=== PATIENT | male | born 1950 | race Caucasian/White ===

== ENCOUNTER 2024-07-12 08:38 | Outpatient (CLI) | payer MEDICARE, OTHER, SELFPAY ==
--- NOTE | 2024-08-03 00:05 | WPDSLEEPSTUD ---
Sleep Study Date of Study: 07/12/24 Ordering Provider: Manjit Rivas MD Interpreting Physician: Edna Prieto MD Sleep Study Type: Split Polysomnogram Height: 1.8 m Weight: 102.058 kg Body Mass Index: 31.4 Neck Circumference (inches): 17 [place]: 7 Reason for Sleep Study Known obstructive sleep apnea not currently on treatment; loud snoring, waking during the night Previous split night study showed AHI 14, recommended pressure 9 cm; problems tolerating mask, pressure He presents for split night study as he has been on PAP for 2 years Sleep History Hernando Hinds is a 74-year-old man with obstructive sleep apnea diagnosed over 2 years ago, had an AHI of 14 and recommended CPAP 9 cm from another sleep lab. He had difficulty tolerating the mask and pressure, despite several attempts by his ENT to adjust CPAP including lower to 5/6 range, then 7/8 in order to allow him to acclimate to wearing 9 cm. He was not able to tolerate PAP, had his machine removed over 2 years ago due to non-adherence. He has nighttime awakenings and excessive daytime sleepiness. He rarely awakens from sleep feeling short of breath. He frequently awakens at night with coughing. He frequently snores, and he occasionally snores loudly enough that others complain. He frequently has difficulty sleeping when he has a cold. He occasionally wakes up gasping for breath at night. He occasionally has breathing problems at night observed by others. He rarely sweats excessively at night. He does not notice his heart pounding or beating irregularly at night. He occasionally falls asleep during the day, does not fall asleep involuntarily or while driving. He does not have loss of muscle tone with strong emotion. He does not feel paralyzed on waking or falling asleep. He does not have vivid dreamlike scenes upon awakening or falling asleep. He does not feel afraid to go to sleep. He rarely has nightmares. He rarely recalls his dreams. He rarely has racing thoughts. He does not feel sad, depressed, or anxious. He rarely notices parts of his body jerking. He rarely kicks at night. He occasionally has crawling and aching feelings in his legs. He frequently experiences leg pain during the night. He does not have morning jaw pain. He occasionally grinds his teeth during sleep, he occasionally is bothered by pain during the day and occasionally is awakened by pain during the night. He frequently wakes up feeling stiff in the morning. He occasionally wakes up with sore or achy muscles and occasionally awakens with pain in the neck and spine. He has concentration difficulties and memory problems. He has occasional morning headaches and problems with sexual functioning. Normal bedtime is 11:30 p.m., falling asleep within 20-30 minutes, typically waking between 3 and 5 times during the night to change positions. He may stay awake for 20 minutes or longer. His normal wake time is 6:30 a.m.. He estimates getting between 5 and 6 hours of sleep normally. His sleep is often disturbed by aches and pains in his shoulder or back. He takes naps in the afternoon or evening. A short nap lasting 10-15 minutes is not refreshing. He is usually drowsy for 1 hour after waking. He feels better in the evening compared to other times of day. Habits: Tobacco: no tobacco Caffeine: 1-2 sodas per day Alcohol: none Recreational substances: none PMFSH Past Medical History Medical History (Updated 08/07/24 @ 22:58 by Edna Prieto MD) Arthritis Asthma Atrial fibrillation 2016 CAD (coronary artery disease) High cholesterol Hypertension Leg cramps Obstructive sleep apnea Reflux esophagitis Surgical History Surgical History (Updated 08/07/24 @ 21:31 by Edna Prieto MD) History of heart artery stent 2023 History of mandibular surgery 1977 Family History Family History (Updated 08/07/24 @ 21:07 by Edna Prieto MD) Other A
[2024-08-12 23:40] VITALS: BMI 31.4
== END 2024-07-13 06:45 | disposition home or self-care (01) ==
LOC: ANHCSM 08:38
PROVIDERS: PCP Family Medicine
DX: G47.33 Obstructive sleep apnea (adult) (pediatric) (principal)
CPT/HCPCS: 95811